=== PATIENT | male | born 1935 | race Caucasian/White ===

== ENCOUNTER → 2016-09-11 09:57 | Day surgery (SDC) | payer MEDICARE, OTHER ==
[~2016-09-11 09:57] MED LIST: Acetaminophen TAB* 325 MG PO PRN; Buffered Lidocaine 1% SYRIN* 3 ML/SYR SYRINGE INTRADERM ONE; Cyclopentolate 1% OPTH.SOL* 2 ML BTL ONE; Flurbiprofen 0.03% OPTH.SOL* 2.5 ML BTL ONE; Lidocaine 1% MPF* 2 ML VIAL ONE; Lidocaine 2% EPI 1:200000 MPF* 20 ML VIAL ONE; Midazolam* 1 MG/ML 5 ML VIAL (5 MG) ONE; Neomycin/Polymy/Dex OPTH.SUSP* MAXITROL 0.1% 5 ML ONE; Phenylephrine 2.5% OPTH.SOL* 2 ML BTL ONE; Povidone Iodine 5% OPTH* 30 ML BTL ONE; Proparacaine 0.5% OPHTH.SOL* 15 ML BTL ONE; acetaZOLAMIDE TAB* 250 MG ONE
[2016-09-11 13:21] VITALS: BP 127/69
--- NOTE | 2016-09-11 15:56 | OP ---
DATE OF OPERATION: 09/11/2016 - [facility] DATE OF : 1935. SURGEON: Dirk Ramos M.D. PREOPERATIVE DIAGNOSIS: Cataract right eye. POSTOPERATIVE DIAGNOSIS: Cataract right eye. OPERATIVE PROCEDURE: Phacoemulsification right eye with IOL. DESCRIPTION OF PROCEDURE: The patient was brought to the operating room after being given 1/2% Alcaine with epinephrine drops in the preoperative area. The eye was prepped and draped in the usual sterile fashion. Sterile drape and eyelid speculum were placed. Again, topical 1/2% Alcaine with epinephrine was given. A paracentesis incision was made at the 9 o'clock position with the No.75 blade. Clear cornea incision 2.2 x 2.2-mm was created at the 12 o'clock position starting at the anterior limbus using the 2.2-mm keratome. The anterior chamber was irrigated with 0.4 mL of 1% non-preservative intracameral lidocaine and filled with DisCoVisc. A capsulorrhexis was completed using the cystotome and the Utrata forceps. Hydrodissection was performed with balanced salt solution. The lens nucleus was removed with the Phacoemulsification handpiece without incident. Cortex was removed with the irrigation-aspiration handpiece. The capsular bag was re-inflated using DisCoVisc and an SN60WF 20.5 implant was inserted with the shooter. The pupil was only about 3.5 mm, so a Malyugin ring was used to dilate the pupil prior to capsulorrhexis and removed after insertion of the lens. The irrigation-aspiration handpiece was used to remove all residual DisCoVisc. The eye was refilled with balanced salt solution and the wound checked and found to be watertight. Topical Maxitrol drops were given. Indication for complex cataract surgery: Iris abnormalities requiring pupil dilation device. [id number]/[facility] #: [id number] [facility]
== END | disposition home or self-care (01) ==
LOC: OREAST 09:57
PROVIDERS: ATTEND Specialist
DX: H25.11 Age-related nuclear cataract, right eye (principal); E11.8 Type 2 diabetes mellitus with unspecified complications; H50.15 Alternating exotropia; Z79.84 Long term (current) use of oral hypoglycemic drugs; Z87.891 Personal history of nicotine dependence
CPT/HCPCS: J2250; V2632